=== PATIENT | female | born 1940 | race Caucasian/White ===

== ENCOUNTER 2017-10-01 12:15 | Inpatient (IN) | payer MEDICARE, OTHER ==
[~2017-10-01] VITALS: Ht 165.1 cm; Wt 127.0 kg
[~2017-10-01 12:15] MED LIST: CARV3.12 PO; HYDR-569 PO; IBUP-1594 PO
[2017-10-01 13:42] LABS: CLARITY,URINE CLOUDY (Clear); COLOR,URINE YELLOW (Yellow); GLUCOSE, URINE NEGATIVE (Neg); KETONES,URINE NEGATIVE (Neg); LEUKOCYTE ESTERASE ,URINE LARGE (Neg); NITRITES, URINE POSITIVE (Neg); OCCULT BLOOD,URINE MODERATE (Neg); PH,URINE 6.5 (4.8-8.0); PROTEIN,URINE NEGATIVE (Neg); UROBILINOGEN,URINE 0.2 E.U/dL (0.2-1.0)
[2017-10-01 13:50] LABS: UA COLLECTION TYPE FOLEY CATH
[2017-10-01 13:56] LABS: RBC,URINE 0-2 /HPF (0-2)
[2017-10-01 13:57] LABS: BACTERIA,URINE 4+ /HPF (Neg); SQUAMOUS EPITHELIAL CELL,UR FEW /LPF (FEW)
[2017-10-01] MEDS ORDERED: ibuprofen tablet 400 MG TABLET PO ONE (15:25)
[2017-10-01] MEDS ORDERED: CEPH500C5 PO (15:39)
[2017-10-01] MEDS ORDERED: normal saline 1000ML IV soln IVB ONE (15:50)
[2017-10-01] MEDS ORDERED: CefTRIAXone 2gm/D5W 50ml 50 ML IV ONE ×2 (15:50→16:45)
[2017-10-01 16:21] LABS: BASOPHILS % (AUTO) 0.3 % (0-1); EOSINOPHILS # (AUTO) 0.4 X10'3 (0-0.9); EOSINOPHILS % (AUTO) 3.6 % (0-6); HEMATOCRIT 34.1 % (35.0-45.0); HEMOGLOBIN 11.1 g/dl (12.0-16.0); LYMPHOCYTES # (AUTO) 1.9 X10'3 (1.1-4.8); LYMPHOCYTES % (AUTO) 16.9 % (21-51); MEAN CORPUSCULAR HEMOGLOBIN 23.9 PG (27.0-31.0); MEAN CORPUSCULAR HGB CONC 32.5 % (33.0-36.5); MEAN CORPUSCULAR VOLUME 73.4 FL (78-98); MONOCYTES # (AUTO) 0.4 X10'3 (0-0.9); NEUTROPHILS # (AUTO) 8.5 X10'3 (1.8-7.7); NEUTROPHILS % (AUTO) 75.2 % (42-75); PLATELET COUNT 479 X10'3 (140-440); RED BLOOD COUNT 4.64 X10'6 (4.20-5.60); RED CELL DISTRIBUTION WIDTH 17.3 % (11.5-14.5); WHITE BLOOD COUNT 11.3 X10'3 (4.5-11.0)
[2017-10-01 16:23] LABS: ALANINE AMINOTRANSFERASE 17 U/L (12-78); ALBUMIN 2.7 G/DL (3.4-5.0); ALBUMIN/GLOBULIN RATIO 0.4 (1.1-1.5); ALKALINE PHOSPHATASE 104 IU/L (46-116); ANION GAP 10 (8-16); ASPARTATE AMINO TRANSFERASE 23 U/L (10-37); BILIRUBIN,TOTAL 0.3 MG/DL (0.1-1.0); BLOOD UREA NITROGEN 11 MG/DL (7-18); CALCIUM 8.7 MG/DL (8.5-10.1); CHLORIDE 101 MMOL/L (99-107); GLUCOSE 142 MG/DL (70-104); POTASSIUM 3.3 MMOL/L (3.5-5.1); SODIUM 139 MMOL/L (135-145); TOTAL CARBON DIOXIDE 28.5 MMOL/L (24-32); TOTAL PROTEIN 8.8 G/DL (6.4-8.2); eGFR 53 ML/MIN
[2017-10-01] MEDS ORDERED: magnesium hydroxide 30ml (MOM) UD suspension PO PRN (16:45)
[2017-10-01] MEDS ORDERED: mag hydrox/Alum hydrox/simeth 30ml oral suspension PO PRN (16:45)
[2017-10-01] MEDS ORDERED: acetaminophen 325mg tablet PO PRN (16:45)
[2017-10-01] MEDS ORDERED: ondansetron/PF 4mg/2ml inj IV PRN (16:45)
[2017-10-01] MEDS: normal saline 1000ml 1,000 ML IV SCH (17:48)
[2017-10-01] MEDS ORDERED: DIPH25CA83 PO (17:53)
[2017-10-01] MEDS ORDERED: potassium Cl 20 mEq SR tablet PO STA (17:59)
[2017-10-01] MEDS ORDERED: DOCU100C41 PO (17:59)
[2017-10-01] MEDS: ibuprofen 200mg tablet PO PRN (19:30)
[2017-10-02] MEDS: ibuprofen 200mg tablet PO PRN ×5 (00:32→21:48)
[2017-10-02] MEDS: normal saline 1000ml 1,000 ML IV SCH ×3 (03:51→17:53)
[2017-10-02 08:04] LABS: BASOPHILS % (AUTO) 0.5 % (0-1); EOSINOPHILS # (AUTO) 0.6 X10'3 (0-0.9); EOSINOPHILS % (AUTO) 5.9 % (0-6); HEMATOCRIT 30.9 % (35.0-45.0); HEMOGLOBIN 10.1 g/dl (12.0-16.0); LYMPHOCYTES # (AUTO) 2.4 X10'3 (1.1-4.8); MEAN CORPUSCULAR HEMOGLOBIN 23.9 PG (27.0-31.0); MEAN CORPUSCULAR HGB CONC 32.8 % (33.0-36.5); MEAN CORPUSCULAR VOLUME 72.9 FL (78-98); MEAN PLATELET VOLUME 5.9 FL (7.4-10.4); MONOCYTES # (AUTO) 0.7 X10'3 (0-0.9); MONOCYTES % (AUTO) 6.9 % (2-12); NEUTROPHILS # (AUTO) 5.8 X10'3 (1.8-7.7); NEUTROPHILS % (AUTO) 61.7 % (42-75); PLATELET COUNT 414 X10'3 (140-440); RED BLOOD COUNT 4.24 X10'6 (4.20-5.60); RED CELL DISTRIBUTION WIDTH 17.8 % (11.5-14.5); WHITE BLOOD COUNT 9.5 X10'3 (4.5-11.0)
[2017-10-02 08:15] VITALS: BP 165/73
[2017-10-02 08:17] LABS: ALBUMIN 2.4 G/DL (3.4-5.0); ANION GAP 8 (8-16); BLOOD UREA NITROGEN 13 MG/DL (7-18); BUN/CREATININE RATIO 14.1 (6.6-38.0); CALCIUM 8.2 MG/DL (8.5-10.1); CHLORIDE 106 MMOL/L (99-107); CREATININE 0.92 MG/DL (0.40-0.90); GLUCOSE 129 MG/DL (70-104); POTASSIUM 3.9 MMOL/L (3.5-5.1); SODIUM 141 MMOL/L (135-145); TOTAL CARBON DIOXIDE 26.8 MMOL/L (24-32); eGFR 59 ML/MIN
[2017-10-02] MEDS: enoxaparin 40mg/0.4ml syringe SUBCUT SCH (09:44)
[2017-10-02] MEDS: docusate sod 100mg capsule PO SCH (09:44)
[2017-10-02 11:48] VITALS: BP 156/78
[2017-10-02] MEDS: CefTRIAXone 2gm/D5W 50ml 50 ML IV SCH (12:20)
[2017-10-02] MEDS: diphenhydrAMINE 25mg capsule PO PRN ×2 (15:18→21:49)
[2017-10-02 20:00] VITALS: BP 145/81
[2017-10-03] VITALS: BP 158/80
[2017-10-03] MEDS: normal saline 1000ml 1,000 ML IV SCH ×2 (03:24→16:23)
[2017-10-03 05:32] LABS: BASOPHILS % (AUTO) 0.6 % (0-1); EOSINOPHILS # (AUTO) 0.5 X10'3 (0-0.9); EOSINOPHILS % (AUTO) 6.3 % (0-6); HEMATOCRIT 29.3 % (35.0-45.0); HEMOGLOBIN 9.6 g/dl (12.0-16.0); LYMPHOCYTES # (AUTO) 2.1 X10'3 (1.1-4.8); LYMPHOCYTES % (AUTO) 26.9 % (21-51); MEAN CORPUSCULAR HEMOGLOBIN 23.8 PG (27.0-31.0); MEAN CORPUSCULAR HGB CONC 32.6 % (33.0-36.5); MEAN CORPUSCULAR VOLUME 73.1 FL (78-98); MONOCYTES # (AUTO) 0.5 X10'3 (0-0.9); MONOCYTES % (AUTO) 5.8 % (2-12); NEUTROPHILS # (AUTO) 4.7 X10'3 (1.8-7.7); NEUTROPHILS % (AUTO) 60.4 % (42-75); PLATELET COUNT 385 X10'3 (140-440); RED BLOOD COUNT 4.02 X10'6 (4.20-5.60); RED CELL DISTRIBUTION WIDTH 17.1 % (11.5-14.5); WHITE BLOOD COUNT 7.7 X10'3 (4.5-11.0)
[2017-10-03 05:42] LABS: ALBUMIN 2.2 G/DL (3.4-5.0); ANION GAP 10 (8-16); BLOOD UREA NITROGEN 12 MG/DL (7-18); BUN/CREATININE RATIO 14.3 (6.6-38.0); CALCIUM 8.1 MG/DL (8.5-10.1); CHLORIDE 106 MMOL/L (99-107); CREATININE 0.84 MG/DL (0.40-0.90); GLUCOSE 129 MG/DL (70-104); POTASSIUM 3.5 MMOL/L (3.5-5.1); SODIUM 141 MMOL/L (135-145); TOTAL CARBON DIOXIDE 24.8 MMOL/L (24-32); eGFR 65 ML/MIN
[2017-10-03 07:00] VITALS: BP 175/87
[2017-10-03] MEDS: diphenhydrAMINE 25mg capsule PO PRN (09:55)
[2017-10-03] MEDS: docusate sod 100mg capsule PO SCH (09:55)
[2017-10-03] MEDS: CefTRIAXone 2gm/D5W 50ml 50 ML IV SCH (09:55)
[2017-10-03] MEDS: ibuprofen 200mg tablet PO PRN ×3 (09:55→20:06)
[2017-10-03] MEDS: enoxaparin 40mg/0.4ml syringe SUBCUT SCH (09:56)
[2017-10-03 12:00] VITALS: BP 171/88
[2017-10-03 18:00] VITALS: BP 151/71
[2017-10-03] MEDS: lactobacillus rhamnosus 10,000 MMU CELLS/CAPSULE PO SCH (20:06)
[2017-10-04] VITALS: BP 143/61
[2017-10-04] MEDS: ibuprofen 200mg tablet PO PRN ×5 (00:12→23:21)
[2017-10-04] MEDS: normal saline 1000ml 1,000 ML IV SCH ×3 (04:19→23:36)
[2017-10-04 05:31] LABS: BASOPHILS % (AUTO) 0.5 % (0-1); EOSINOPHILS # (AUTO) 0.5 X10'3 (0-0.9); EOSINOPHILS % (AUTO) 6.1 % (0-6); HEMATOCRIT 28.1 % (35.0-45.0); HEMOGLOBIN 9.1 g/dl (12.0-16.0); LYMPHOCYTES # (AUTO) 1.8 X10'3 (1.1-4.8); LYMPHOCYTES % (AUTO) 24.9 % (21-51); MEAN CORPUSCULAR HEMOGLOBIN 23.6 PG (27.0-31.0); MEAN CORPUSCULAR HGB CONC 32.3 % (33.0-36.5); MEAN CORPUSCULAR VOLUME 73.1 FL (78-98); MEAN PLATELET VOLUME 6.1 FL (7.4-10.4); MONOCYTES # (AUTO) 0.5 X10'3 (0-0.9); MONOCYTES % (AUTO) 6.2 % (2-12); NEUTROPHILS # (AUTO) 4.6 X10'3 (1.8-7.7); NEUTROPHILS % (AUTO) 62.3 % (42-75); PLATELET COUNT 374 X10'3 (140-440); RED BLOOD COUNT 3.84 X10'6 (4.20-5.60); RED CELL DISTRIBUTION WIDTH 17.8 % (11.5-14.5); WHITE BLOOD COUNT 7.4 X10'3 (4.5-11.0)
[2017-10-04 05:42] LABS: ALBUMIN 2.1 G/DL (3.4-5.0); ANION GAP 9 (8-16); BLOOD UREA NITROGEN 12 MG/DL (7-18); BUN/CREATININE RATIO 14.8 (6.6-38.0); CALCIUM 7.8 MG/DL (8.5-10.1); CHLORIDE 106 MMOL/L (99-107); CREATININE 0.81 MG/DL (0.40-0.90); GLUCOSE 147 MG/DL (70-104); POTASSIUM 3.5 MMOL/L (3.5-5.1); SODIUM 140 MMOL/L (135-145); eGFR 68 ML/MIN
[2017-10-04] MEDS: docusate sod 100mg capsule PO SCH (10:12)
[2017-10-04] MEDS: CefTRIAXone 2gm/D5W 50ml 50 ML IV SCH (10:12)
[2017-10-04] MEDS: diphenhydrAMINE 25mg capsule PO PRN ×2 (10:12→19:18)
[2017-10-04] MEDS: lactobacillus rhamnosus 10,000 MMU CELLS/CAPSULE PO SCH ×2 (10:18→19:18)
[2017-10-04] MEDS: enoxaparin 40mg/0.4ml syringe SUBCUT SCH (10:18)
[2017-10-04 19:15] VITALS: BP 144/67
[2017-10-04] MEDS: bisacodyl 10mg suppository rectal RC PRN (21:13)
[2017-10-05] VITALS: BP 135/66
[2017-10-05 05:29] LABS: BASOPHILS % (AUTO) 0.5 % (0-1); EOSINOPHILS # (AUTO) 0.4 X10'3 (0-0.9); EOSINOPHILS % (AUTO) 5.7 % (0-6); HEMATOCRIT 28.1 % (35.0-45.0); HEMOGLOBIN 9.3 g/dl (12.0-16.0); LYMPHOCYTES % (AUTO) 26.1 % (21-51); MEAN CORPUSCULAR HEMOGLOBIN 23.9 PG (27.0-31.0); MEAN CORPUSCULAR HGB CONC 32.9 % (33.0-36.5); MEAN CORPUSCULAR VOLUME 72.7 FL (78-98); MEAN PLATELET VOLUME 5.9 FL (7.4-10.4); MONOCYTES # (AUTO) 0.5 X10'3 (0-0.9); MONOCYTES % (AUTO) 6.9 % (2-12); NEUTROPHILS # (AUTO) 4.6 X10'3 (1.8-7.7); NEUTROPHILS % (AUTO) 60.8 % (42-75); PLATELET COUNT 369 X10'3 (140-440); RED BLOOD COUNT 3.87 X10'6 (4.20-5.60); RED CELL DISTRIBUTION WIDTH 17.7 % (11.5-14.5); WHITE BLOOD COUNT 7.5 X10'3 (4.5-11.0)
[2017-10-05 05:35] LABS: ALBUMIN 2.2 G/DL (3.4-5.0); ANION GAP 11 (8-16); BLOOD UREA NITROGEN 9 MG/DL (7-18); BUN/CREATININE RATIO 11.4 (6.6-38.0); CALCIUM 7.8 MG/DL (8.5-10.1); CHLORIDE 106 MMOL/L (99-107); CREATININE 0.79 MG/DL (0.40-0.90); GLUCOSE 133 MG/DL (70-104); POTASSIUM 3.2 MMOL/L (3.5-5.1); SODIUM 141 MMOL/L (135-145); TOTAL CARBON DIOXIDE 24.5 MMOL/L (24-32); eGFR 70 ML/MIN
[2017-10-05 07:00] VITALS: BP 135/72
[2017-10-05] MEDS: ibuprofen 200mg tablet PO PRN ×2 (07:12→12:21)
[2017-10-05] MEDS: lactobacillus rhamnosus 10,000 MMU CELLS/CAPSULE PO SCH (07:12)
[2017-10-05] MEDS: CefTRIAXone 2gm/D5W 50ml 50 ML IV SCH (07:14)
[2017-10-05] MEDS: enoxaparin 40mg/0.4ml syringe SUBCUT SCH (07:15)
[2017-10-05] MEDS: docusate sod 100mg capsule PO SCH (07:15)
[2017-10-05] MEDS: diphenhydrAMINE 25mg capsule PO PRN (07:19)
[2017-10-05] MEDS ORDERED: LACT1CAP26 PO (08:54)
[2017-10-05] MEDS ORDERED: MAGN400O6 PO (08:54)
[2017-10-05] MEDS ORDERED: magnesium 2GM in 50ml NS 50 ML IV PRN (09:40)
[2017-10-05] MEDS ORDERED: potassium Cl 40MEQ/NS 500ml 500 ML IV PRN ×2 (09:40)
[2017-10-05] MEDS ORDERED: magnesium 4gm in 100ml NS 100 ML IV PRN (09:40)
[2017-10-05] MEDS ORDERED: magnesium Cl slow-release 64mg tablet PO PRN (09:40)
[2017-10-05] MEDS ORDERED: potassium Cl 20 mEq SR tablet PO PRN (09:40)
[2017-10-05] MEDS: potassium Cl 20 mEq SR tablet PO PRN ×2 (09:54→13:51)
[2017-10-05] MEDS: bisacodyl 10mg suppository rectal RC PRN (09:56)
[2017-10-05] MEDS: normal saline 1000ml 1,000 ML IV SCH (09:58)
[2017-10-05 11:00] VITALS: BP 120/68
== END 2017-10-05 14:25 | DRG 689 ==
LOC: ER 12:16 → ED HOLD 16:44 → EDBEDREQTM 10-02 07:06 → EDBEDREQDT 10-02 07:06 → SUR 3N 10-02 07:55
PROVIDERS: ADMIT Family Medicine; ATTEND Family Medicine
DX: N39.0 Urinary tract infection, site not specified (principal); E43 Unspecified severe protein-calorie malnutrition; I48.0 Paroxysmal atrial fibrillation; B96.1 Klebsiella pneumoniae [K. pneumoniae] as the cause of diseases classified elsewhere; Z68.42 Body mass index [BMI] 45.0-49.9, adult; E66.01 Morbid (severe) obesity due to excess calories; E87.6 Hypokalemia; I10 Essential (primary) hypertension; M19.90 Unspecified osteoarthritis, unspecified site; Z74.01 Bed confinement status; Z88.8 Allergy status to other drugs, medicaments and biological substances; Z79.899 Other long term (current) drug therapy
CPT/HCPCS: 36415; 71045; 80048; 80053; 81001; 85025; 87070; 87077; 87088; 87186; 99285; A4315; A6212; A6213; A6223; A6253; A6446; A6449; J0696; J1650; J7030; Q0163